=== PATIENT | male | born 1950 | race Hispanic/Latino ===

== ENCOUNTER 2022-01-05 15:44 | Emergency (ER) | payer OTHER ==
[2022-01-05] MEDS ORDERED: Ibuprofen 200 MG TAB ONE (18:00)
[2022-01-05 18:04] LABS: SARS-CoV-2 NAA Rapid Test Not Detected (NotDetected)
== END 2022-01-05 22:02 | disposition short-term general hospital (02) ==
LOC: CSHERS 15:44
DX: S32.011A Stable burst fracture of first lumbar vertebra, initial encounter for closed fracture (principal); S32.059A Unspecified fracture of fifth lumbar vertebra, initial encounter for closed fracture; E78.00 Pure hypercholesterolemia, unspecified; I10 Essential (primary) hypertension; X58.XXXA Exposure to other specified factors, initial encounter
CPT/HCPCS: 72131; 72170; U0002